=== PATIENT | female | born 1995 | race Caucasian/White ===

== ENCOUNTER 2016-05-26 13:31 | Emergency (ER) | payer BC ==
[~2016-05-26] VITALS: Ht 160 cm; Wt 63.6 kg
[~2016-05-26 13:31] MED LIST: FLEXERIL 1010 MG/TAB PO; MACROBID 1100 MG/CAP PO; PORTIA-28 30 MC1 TAB PO
[2016-05-26 15:09] VITALS: BP 123/76; PULSE 64; TEMP 98.2
== END 2016-05-26 15:10 | disposition home or self-care (01) ==
LOC: COL.ER 13:31
DX: R11.10 Vomiting, unspecified (principal); R07.0 Pain in throat; R51 Headache
CPT/HCPCS: J1200; J2405; J7030

== ENCOUNTER 2016-11-03 20:50 | Emergency (ER) | payer BC ==
[~2016-11-03] VITALS: Ht 160 cm; Wt 65.9 kg
[2016-11-03 21:01] VITALS: TEMP 97.9
[2016-11-03] MEDS ORDERED: EPIPEN 2-PAK1 MG/ML IM (22:58)
[2016-11-03] MEDS ORDERED: PREDNISONE20 MG PO (23:29)
[2016-11-03 23:33] VITALS: BP 105/54; PULSE 105
== END 2016-11-03 23:33 | disposition home or self-care (01) ==
LOC: COL.ER 20:50
DX: T78.1XXA Other adverse food reactions, not elsewhere classified, initial encounter (principal)
CPT/HCPCS: J0171; J1200; J2405; J2930; J7030